=== PATIENT | male | born 1995 ===

== ENCOUNTER 2017-04-30 00:39 | Emergency (ER) | payer SELFPAY ==
[2017-04-30 01:00] VITALS: BP 115/62; PULSE 78; RESP 16; TEMP 98.1; O2SAT 100
--- NOTE | 2017-04-30 01:17 | C.PDOC ---
History Of Present Illness Patient states he cut his right index finger with open beer bottle that cracked yesterday evening. He cleaned it at home and bleeding controlled. He states someone advised ER visit for stitches. He is unsure of tetanus status. Denies any fever or limitation of movement. Time Seen by Provider: 04/30/17 01:01 Chief Complaint (Nursing): Abnormal Skin Integrity History Per: Patient History/Exam Limitations: no limitations Onset/Duration Of Symptoms: Days (yesterday) Current Symptoms Are (Timing): Still Present Location Of Injury: Right: Hand (index) Quality Of Symptoms: Painful Severity: Mild Pain Scale Rating Of: 3 Recent travel outside of the [place]: No Past Medical History Reviewed: Historical Data, Nursing Documentation, Vital Signs Vital Signs: Last Vital Signs Temp 98.1 F 04/30/17 00:53 Pulse 78 04/30/17 00:53 Resp 16 04/30/17 00:53 BP 115/62 04/30/17 00:53 Pulse Ox 100 04/30/17 02:15 Family History: States: Unknown Family Hx - Social History Hx Alcohol Use: Yes Hx Substance Use: Yes - Immunization History Hx Tetanus Toxoid Vaccination: No Hx Influenza Vaccination: No Hx Pneumococcal Vaccination: No Review Of Systems Except As Marked, All Systems Reviewed And Found Negative. Constitutional: Negative for: Fever Musculoskeletal: Positive for: Other (laceration to right index finger) Neurological: Negative for: Weakness, Numbness Physical Exam - Physical Exam Appears: Non-toxic, No Acute Distress Skin: Warm, Dry, Other (1.5 cm laceration to dorsal right second digit near PIP , no active bleeding) Head: Atraumatic, Normacephalic Eye(s): bilateral: Normal Inspection Neck: Normal ROM Chest: Symmetrical Extremity: Normal ROM, Capillary Refill (<2 seconds), No Deformity, No Swelling , Other (right index: normal ROM, tendon function intact, <2 seconds capillary refill) Neurological/Psych: Oriented x3, Normal Speech, Normal Motor, Normal Sensation Gait: Steady ED Course And Treatment O2 Sat by Pulse Oximetry: 100 (room air) Pulse Ox Interpretation: Normal Laceration - Laceration Repair right index Wound Length (In cm): 1.5 Description Of Wound: Linear Wound Cleansed With: Sterile Saline Wound Examination: Irrigated With Saline, No Tendon Injury With Wound Exploration Wound Closure: Steri Strips (2) Wound Complexity: Simple Medical Decision Making Medical Decision Making: Patient with old finger laceration over 24 hours. No signs of cellulitis. Patient has normal tendon function and no deep structure involvement. Wound cleansed and steri strips applied. Disposition Counseled Patient/Family Regarding: Need For Followup - Disposition Disposition: HOME/ ROUTINE Disposition Time: 01:17 Condition: STABLE Additional Instructions: Your laceration is old and cannot be sutured closed Steristrips were applied to keep skin together Keep wound clean and dry Return to ER if fever occurs, redness or swelling around wound, pus in the wound. Instructions: Steristrips (ED), Laceration Without Closure (ED) - POA Present On Arrival: None - Clinical Impression Clinical Impression: Laceration of finger - PA / TRANSFER TABLE OPERATOR / Resident Statement MD/DO has reviewed & agrees with the documentation as recorded. - Scribe Statement The provider has reviewed the documentation as recorded by the Scribe Sydnie Armenta All medical record entries made by the Scribe were at my direction and personally dictated by me. I have reviewed the chart and agree that the record accurately reflects my personal performance of the history, physical exam, medical decision making, and the department course for this patient. I have also personally directed, reviewed, and agree with the discharge instructions and disposition.
== END 2017-04-30 01:34 | disposition home or self-care (01) ==
LOC: C.ER 00:39
DX: S61.210A Laceration without foreign body of right index finger without damage to nail, initial encounter (principal); W25.XXXA Contact with sharp glass, initial encounter; Y92.9 Unspecified place or not applicable; Z23 Encounter for immunization

== ENCOUNTER 2017-06-12 23:02 | Emergency (ER) | payer OTHER ==
[2017-06-12 23:10] VITALS: BP 133/82; PULSE 88; RESP 20; TEMP 98.3; O2SAT 98
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
== END 2017-06-12 23:46 | disposition home or self-care (01) ==
LOC: C.ER 23:02
DX: S16.1XXA Strain of muscle, fascia and tendon at neck level, initial encounter (principal); S39.012A Strain of muscle, fascia and tendon of lower back, initial encounter; V89.2XXA Person injured in unspecified motor-vehicle accident, traffic, initial encounter
CPT/HCPCS: 96372; 99283; J1885